=== PATIENT | female | born 1965 ===

== ENCOUNTER 2018-12-13 07:43 | Day surgery (SDC) | payer OTHER ==
[~2018-12-13] VITALS: Ht 162.6 cm; Wt 61.9 kg
[~2018-12-13 07:43] MED LIST: Cranberry405 MG PO; MULTI VITAMIN1 EACH PO; Mirena1 EACH; NATURAL CALCIU500 MG PO; VITAMIN B122500 MC1 PO; VITAMIN D31000 UNIT PO
--- NOTE | 2018-12-13 08:05 | NUR ---
12/13/18 0805 Abdiel Vences CALL LIGHT WITHIN REACH
== END 2018-12-13 09:48 | disposition home or self-care (01) ==
LOC: ORSCSDS 07:43
PROVIDERS: Surgery
PROC: 0DBN8ZX Excision of Sigmoid Colon, Via Natural or Artificial Opening Endoscopic, Diagnostic (ICD-10-PCS; principal; 2018-12-13 09:00)
DX: Z12.11 Encounter for screening for malignant neoplasm of colon (principal); K63.5 Polyp of colon; Z79.899 Other long term (current) drug therapy; K64.8 Other hemorrhoids
CPT/HCPCS: 88305; J7120

== ENCOUNTER → 2020-09-09 | Outpatient (CLI) | payer OTHER | END | disposition home or self-care (01) | LOC: LAB 16:08 | DX: R30.0 Dysuria (principal) | CPT/HCPCS: 87077; 87086; 87186 ==